=== PATIENT | male | born 1975 | race African-American/Black ===

== ENCOUNTER 2022-09-14 08:55 | Inpatient (IN) | payer OTHER ==
[2022-09-14 09:17] VITALS: BMI 20.5
[2022-09-14] MEDS ORDERED: ONDANSETRON *ODT* 4 MG TABLET SL PRN (09:45)
[2022-09-14] MEDS ORDERED: METHOCARBAMOL 500 MG TABLET PO PRN (09:45)
[2022-09-14] MEDS ORDERED: NICOTINE 14 MG/24 HOURS TOPICAL PATCH TD PRN (09:45)
[2022-09-14] MEDS ORDERED: LOPERAMIDE HCL 2 MG CAPSULE PO PRN (09:45)
[2022-09-14] MEDS ORDERED: NICOTINE 10 MG CARTRIDGE (INHALER) IH PRN (09:45)
[2022-09-14] MEDS ORDERED: hydrOXYzine PAMOATE 25 MG CAPSULE (FP) PO PRN (09:45)
[2022-09-14] MEDS ORDERED: NICOTINE POLACRILEX 2 MG GUM BUC PRN (09:45)
[2022-09-14] MEDS ORDERED: BISMUTH SUBSALICYLATE 524 MG/30 ML PO PRN (09:45)
[2022-09-14] MEDS ORDERED: guaiFENesin 600 MG TABLET.ER (FP) PO PRN (09:45)
[2022-09-14] MEDS ORDERED: POLYETHYLENE GLYCOL (HEALTHYLAX) 3350 17 GM PACKET PO PRN (09:45)
[2022-09-14] MEDS ORDERED: MAG HYDROX/AL HYDROX/SIMETH 30 ML UNIT-DOSE CUP PO PRN (09:45)
[2022-09-14] MEDS ORDERED: IBUPROFEN 600 MG TABLET (FP) PO PRN (09:45)
[2022-09-14] MEDS ORDERED: DICYCLOMINE HCL 10 MG CAPSULE PO PRN (09:45)
[2022-09-14] MEDS ORDERED: BENZOCAINE/MENTHOL (CHLORASEPTIC ) LOZENGE MM PRN (09:45)
[2022-09-14] MEDS ORDERED: ACETAMINOPHEN 325 MG TABLET (FP) PO PRN (09:45)
[2022-09-14] MEDS ORDERED: IBUPROFEN 400 MG TABLET (FP) PO PRN (09:45)
[2022-09-14] MEDS ORDERED: MAGNESIUM HYDROX 2400MG/30ML ORAL SUSPENSION 30 ML CUP PO PRN (09:45)
[2022-09-14] MEDS ORDERED: BENZONATATE 200 MG CAPSULE PO PRN (09:45)
[2022-09-14] MEDS ORDERED: PRENATAL VITAMINS W/ FOLIC ACID TABLET (FP) PO ONE (10:32)
[2022-09-14] MEDS ORDERED: HYDROCHLOROTHIAZIDE 12.5 MG CAPSULE (FP) ONE (10:32)
[2022-09-14] MEDS: PRENATAL VITAMINS W/ FOLIC ACID TABLET (FP) PO SCH (10:37)
[2022-09-14] MEDS: HYDROCHLOROTHIAZIDE 25 MG TABLET (FP) PO SCH (10:37)
[2022-09-14 13:21] LABS: HEMATOCRIT 35.8 % (35.4-49); HEMOGLOBIN 12.5 GM/dL (11.7-16.9); MCH 30.3 pg (25.7-33.7); MEAN CELL VOLUME 86.5 fl (80-96); MEAN PLT VOLUME 8.3 fl (7.5-11.1); PLATELET COUNT 275 10^3/uL (134-434); RBC 4.14 M/mm3 (4.00-5.60); RDW 12.9 % (11.9-15.9); WHITE BLOOD COUNT 6.6 K/mm3 (4.0-10.0)
[2022-09-14 14:08] LABS: BLOOD UREA NITROGEN 20.6 mg/dL (7-18); CALCIUM 9.2 mg/dL (8.5-10.1)
[2022-09-14 14:11] LABS: BILIRUBIN,TOTAL 0.4 mg/dL (0.2-1); CREATININE 1.6 mg/dL (0.55-1.3); TOT PROT 7.4 g/dl (6.4-8.2)
[2022-09-14] MEDS: MELATONIN 5 MG TABLETS PO SCH (22:35)
[2022-09-14] MEDS: THIAMINE HCL 100 MG TABLET (FP) PO SCH (22:35)
[2022-09-15] MEDS: HYDROCHLOROTHIAZIDE 25 MG TABLET (FP) PO SCH (10:24)
[2022-09-15] MEDS: PRENATAL VITAMINS W/ FOLIC ACID TABLET (FP) PO SCH (10:24)
[2022-09-15] MEDS ORDERED: POTASSIUM CHLORIDE ORAL LIQUID 20 MEQ/15 ML PO ONE (10:25)
[2022-09-15] MEDS: MELATONIN 5 MG TABLETS PO SCH (22:21)
[2022-09-15] MEDS: THIAMINE HCL 100 MG TABLET (FP) PO SCH (22:21)
[2022-09-16 06:34] VITALS: RESP 17; TEMP 97.8
[2022-09-16] MEDS: PRENATAL VITAMINS W/ FOLIC ACID TABLET (FP) PO SCH (10:41)
[2022-09-16] MEDS: HYDROCHLOROTHIAZIDE 25 MG TABLET (FP) PO SCH (10:41)
[2022-09-16 11:55] LABS: BLOOD UREA NITROGEN 18.2 mg/dL (7-18); CALCIUM 9.5 mg/dL (8.5-10.1)
[2022-09-16 11:59] LABS: CREATININE 1.2 mg/dL (0.55-1.3)
[2022-09-16 14:00] VITALS: BP 133/85; PULSE 50
== END 2022-09-16 14:17 | disposition home or self-care (01) | DRG 774 ==
LOC: YASAS 08:55 → Y3N 10:19
PROVIDERS: ADMIT Allergy & Immunology; ATTEND Surgery
PROC: HZ2ZZZZ Detoxification Services for Substance Abuse Treatment (ICD-10-PCS; principal; 2022-09-14)
DX: F10.230 Alcohol dependence with withdrawal, uncomplicated (principal); F14.20 Cocaine dependence, uncomplicated; F12.20 Cannabis dependence, uncomplicated; F17.210 Nicotine dependence, cigarettes, uncomplicated; F41.9 Anxiety disorder, unspecified; F32.A Depression, unspecified; E87.6 Hypokalemia; I10 Essential (primary) hypertension
CPT/HCPCS: 36415; 80048; 80053; 82140; 85027; 86780; 93005; 93010; C9803-CS; U0003; U0005

== ENCOUNTER 2024-03-12 09:48 | Inpatient (IN) | payer OTHER ==
[2024-03-12 10:26] VITALS: BMI 19.8
[2024-03-12] MEDS ORDERED: amLODIPine BESYLATE 5 MG TABLET (FP) ONE (10:54)
[2024-03-12] MEDS ORDERED: HYDROCHLOROTHIAZIDE 12.5 MG CAPSULE (FP) ONE (10:54)
[2024-03-12] MEDS: amLODIPine BESYLATE 5 MG TABLET (FP) PO ONE (10:56)
[2024-03-12] MEDS ORDERED: MAGNESIUM HYDROX 2400MG/30ML ORAL SUSPENSION 30 ML CUP PO PRN (10:58)
[2024-03-12] MEDS ORDERED: MAG HYDROX/AL HYDROX/SIMETH 30 ML UNIT-DOSE CUP PO PRN (10:58)
[2024-03-12] MEDS ORDERED: POLYETHYLENE GLYCOL (HEALTHYLAX) 3350 17 GM PACKET PO PRN (10:58)
[2024-03-12] MEDS ORDERED: DICYCLOMINE HCL 10 MG CAPSULE PO PRN (10:58)
[2024-03-12] MEDS ORDERED: BENZONATATE 200 MG CAPSULE PO PRN (10:58)
[2024-03-12] MEDS ORDERED: ONDANSETRON *ODT* 4 MG TABLET SL PRN (10:58)
[2024-03-12] MEDS ORDERED: BISMUTH SUBSALICYLATE 262 MG/15 ML BTL PO PRN (10:58)
[2024-03-12] MEDS ORDERED: NALOXONE (NARCAN) HCL 4 MG/0.1 ML SPRAY NS PRN (10:58)
[2024-03-12] MEDS ORDERED: guaiFENesin 600 MG TABLET.ER (FP) PO PRN (10:58)
[2024-03-12] MEDS ORDERED: LOPERAMIDE HCL 2 MG CAPSULE PO PRN (10:58)
[2024-03-12] MEDS ORDERED: BENZOCAINE/MENTHOL (CHLORASEPTIC ) LOZENGE MM PRN (10:58)
[2024-03-12] MEDS ORDERED: IBUPROFEN 400 MG TABLET (FP) PO PRN (10:58)
[2024-03-12] MEDS: hydrOXYzine PAMOATE 25 MG CAPSULE (FP) PO PRN (13:13)
[2024-03-12] MEDS: chlordiazePOXIDE HCL 25 MG CAPSULE PO PRN (13:14)
[2024-03-12] MEDS: NALTREXONE HCL 50 MG TABLET PO ONE (13:18)
[2024-03-12] MEDS: NALOXONE (NYS OPIOID OVERDOSE PROGRAM) 4 MG/0.1 ML SPRAY NS ONE (13:18)
[2024-03-12] MEDS ORDERED: NALOXONE (NYS OPIOID OVERDOSE PROGRAM) 4 MG/0.1 ML SPRAY NS PRN (14:08)
[2024-03-12] MEDS: chlordiazePOXIDE HCL 25 MG CAPSULE PO SCH (17:36)
[2024-03-12 17:44] LABS: HIV INTERPRETATION NEGATIVE (NEGATIVE)
[2024-03-12] MEDS: THIAMINE 100 MG TABLET PO SCH (22:28)
[2024-03-12] MEDS: MELATONIN 5 MG TABLETS PO SCH (22:28)
[2024-03-12] MEDS: METHOCARBAMOL 500 MG TABLET PO PRN (22:28)
[2024-03-13] MEDS: PRENATAL VITAMINS W/ FOLIC ACID TABLET (FP) PO SCH (10:26)
[2024-03-13] MEDS: NALTREXONE HCL 50 MG TABLET PO SCH (10:26)
[2024-03-13] MEDS: HYDROCHLOROTHIAZIDE 25 MG TABLET (FP) PO SCH (10:26)
[2024-03-13 14:39] LABS: POTASSIUM 4.2 mmol/L (3.5-5.1)
[2024-03-13 14:43] LABS: CALCIUM 9.2 mg/dL (8.5-10.1)
[2024-03-13 14:44] LABS: ALBUMIN 3.5 g/dl (3.4-5.0); BLOOD UREA NITROGEN 19.8 mg/dL (7-18)
[2024-03-13 14:47] LABS: CREATININE 1.4 mg/dL (0.55-1.3)
[2024-03-13 14:48] LABS: BILIRUBIN,TOTAL 0.5 mg/dL (0.2-1); TOT PROT 6.4 g/dl (6.4-8.2)
[2024-03-13 14:51] LABS: HEMATOCRIT 40.1 % (35.4-49); HEMOGLOBIN 12.9 GM/dL (11.7-16.9); MCH 28.6 pg (25.7-33.7); MCHC 32.1 g/dl (32.0-35.9); MEAN PLT VOLUME 8.5 fl (7.5-11.1); PLATELET COUNT 256 10^3/uL (134-434); RBC 4.51 M/mm3 (4.00-5.60); RDW 14.7 % (11.9-15.9); WHITE BLOOD COUNT 5.8 K/mm3 (4.0-10.0)
[2024-03-13] MEDS: ACETAMINOPHEN 325 MG TABLET (FP) PO PRN (17:36)
[2024-03-13] MEDS: IBUPROFEN 600 MG TABLET (FP) PO PRN (22:27)
[2024-03-14] MEDS: chlordiazePOXIDE HCL 25 MG CAPSULE PO SCH (06:00)
[2024-03-14] MEDS: LACTULOSE 20 GM/30 ML UDC (FOR ORAL USE ONLY) PO SCH (14:38)
[2024-03-14] MEDS: cloNIDine HCL 0.1 MG TABLET PO PRN (14:38)
[2024-03-15] MEDS ORDERED: chlordiazePOXIDE HCL 10 MG CAPSULE PO PRN
[2024-03-15] MEDS: chlordiazePOXIDE HCL 10 MG CAPSULE PO SCH (05:37)
[2024-03-15 17:55] VITALS: RESP 18
[2024-03-15] MEDS: ACETAMINOPHEN 325 MG TABLET (FP) PO PRN (18:04)
[2024-03-15] MEDS: cloNIDine HCL 0.1 MG TABLET PO ONE (19:25)
[2024-03-16] MEDS: chlordiazePOXIDE HCL 10 MG CAPSULE PO SCH (05:40)
[2024-03-16 11:46] VITALS: BP 147/81; PULSE 66; TEMP 98.6
[2024-03-17] MEDS ORDERED: chlordiazePOXIDE HCL 10 MG CAPSULE PO ONE (05:00)
== END 2024-03-16 09:31 | disposition home or self-care (01) | DRG 774 ==
LOC: YASAS 09:48 → Y3N 11:24 → Y6N 03-14 21:48
PROVIDERS: ADMIT Allergy & Immunology; ATTEND Surgery
PROC: HZ2ZZZZ Detoxification Services for Substance Abuse Treatment (ICD-10-PCS; principal; 2024-03-12)
DX: F10.230 Alcohol dependence with withdrawal, uncomplicated (principal); F14.20 Cocaine dependence, uncomplicated; F17.210 Nicotine dependence, cigarettes, uncomplicated; F32.A Depression, unspecified; E72.20 Disorder of urea cycle metabolism, unspecified; I10 Essential (primary) hypertension; R45.89 Other symptoms and signs involving emotional state; R07.9 Chest pain, unspecified; I25.2 Old myocardial infarction
CPT/HCPCS: 36415; 80053; 80305; 80307; 82140; 84484; 85027; 86780; 86803; 87389; 93005; 93010

== ENCOUNTER 2024-07-02 09:20 | Inpatient (IN) | payer OTHER ==
[2024-07-02] MEDS ORDERED: LOPERAMIDE HCL 2 MG CAPSULE PO PRN (10:46)
[2024-07-02] MEDS ORDERED: BISMUTH SUBSALICYLATE 262 MG/15 ML BTL PO PRN (10:46)
[2024-07-02] MEDS ORDERED: NALOXONE (NARCAN) HCL 4 MG/0.1 ML SPRAY NS PRN (10:46)
[2024-07-02] MEDS ORDERED: POLYETHYLENE GLYCOL (HEALTHYLAX) 3350 17 GM PACKET PO PRN (10:46)
[2024-07-02] MEDS ORDERED: guaiFENesin 600 MG TABLET.ER (FP) PO PRN (10:46)
[2024-07-02] MEDS ORDERED: ACETAMINOPHEN 325 MG TABLET (FP) PO PRN (10:46)
[2024-07-02] MEDS ORDERED: MAGNESIUM HYDROX 2400MG/30ML ORAL SUSPENSION 30 ML CUP PO PRN (10:46)
[2024-07-02] MEDS ORDERED: hydrOXYzine PAMOATE 25 MG CAPSULE (FP) PO PRN (10:46)
[2024-07-02] MEDS ORDERED: chlordiazePOXIDE HCL 25 MG CAPSULE PO PRN (10:46)
[2024-07-02] MEDS ORDERED: IBUPROFEN 400 MG TABLET (FP) PO PRN (10:46)
[2024-07-02] MEDS ORDERED: ONDANSETRON *ODT* 4 MG TABLET SL PRN (10:46)
[2024-07-02] MEDS ORDERED: IBUPROFEN 600 MG TABLET (FP) PO PRN (10:46)
[2024-07-02] MEDS ORDERED: BENZOCAINE/MENTHOL (CHLORASEPTIC ) LOZENGE MM PRN (10:46)
[2024-07-02] MEDS ORDERED: MAG HYDROX/AL HYDROX/SIMETH 30 ML UNIT-DOSE CUP PO PRN (10:46)
[2024-07-02] MEDS ORDERED: DICYCLOMINE HCL 10 MG CAPSULE PO PRN (10:46)
[2024-07-02] MEDS ORDERED: BENZONATATE 200 MG CAPSULE PO PRN (10:46)
[2024-07-02] MEDS: NALTREXONE HCL 50 MG TABLET PO ONE (11:32)
[2024-07-02] MEDS: HYDROCHLOROTHIAZIDE 25 MG TABLET (FP) PO SCH (11:33)
[2024-07-02] MEDS: chlordiazePOXIDE HCL 25 MG CAPSULE PO SCH (17:50)
[2024-07-02] MEDS: THIAMINE 100 MG TABLET PO SCH (22:19)
[2024-07-02] MEDS: MELATONIN 5 MG TABLETS PO SCH (22:19)
[2024-07-03] MEDS: PRENATAL VITAMINS W/ FOLIC ACID TABLET (FP) PO SCH (10:11)
[2024-07-03] MEDS: NALTREXONE HCL 50 MG TABLET PO SCH (10:11)
[2024-07-03] MEDS: amLODIPine BESYLATE 5 MG TABLET (FP) PO SCH (11:00)
[2024-07-03] MEDS: FLU VACCINE (FLULAVAL) PF 45 MCG/0.5 ML SYRINGE 2024-2025 IM ONE (11:29)
[2024-07-03 11:52] LABS: HEMATOCRIT 35.9 % (35.4-49); HEMOGLOBIN 11.6 GM/dL (11.7-16.9); MCHC 32.3 g/dl (32.0-35.9); MEAN CELL VOLUME 89.8 fl (80-96); MEAN PLT VOLUME 8.5 fl (7.5-11.1); PLATELET COUNT 292 10^3/uL (134-434); RBC 3.99 M/mm3 (4.00-5.60); RDW 14.9 % (11.9-15.9); WHITE BLOOD COUNT 4.2 K/mm3 (4.0-10.0)
[2024-07-03 12:04] LABS: POTASSIUM 3.9 mmol/L (3.5-5.1)
[2024-07-03 12:20] LABS: ALBUMIN 3.4 g/dl (3.4-5.0); BLOOD UREA NITROGEN 14.1 mg/dL (7-18); CALCIUM 9.2 mg/dL (8.5-10.1)
[2024-07-03 12:23] LABS: CREATININE 1.4 mg/dL (0.55-1.3)
[2024-07-03 12:24] LABS: BILIRUBIN,TOTAL 0.9 mg/dL (0.2-1); TOT PROT 6.3 g/dl (6.4-8.2)
[2024-07-03] MEDS: MIRTAZAPINE 15 MG TABLET (FP) PO SCH (22:40)
[2024-07-04] MEDS: chlordiazePOXIDE HCL 25 MG CAPSULE PO SCH (06:00)
[2024-07-05] MEDS ORDERED: chlordiazePOXIDE HCL 10 MG CAPSULE PO PRN
[2024-07-05] MEDS: chlordiazePOXIDE HCL 10 MG CAPSULE PO SCH (05:55)
[2024-07-06] MEDS: chlordiazePOXIDE HCL 10 MG CAPSULE PO SCH (05:54)
[2024-07-06] MEDS: METHOCARBAMOL 500 MG TABLET PO PRN (09:17)
[2024-07-06 21:28] VITALS: RESP 16
[2024-07-07] MEDS: chlordiazePOXIDE HCL 10 MG CAPSULE PO ONE (05:59)
[2024-07-07 09:32] VITALS: BP 147/90; PULSE 63; TEMP 97.3
== END 2024-07-07 09:34 | disposition home or self-care (01) | DRG 774 ==
LOC: YASAS 09:20 → Y6N 10:59
PROVIDERS: ADMIT Allergy & Immunology; ATTEND Allergy & Immunology
PROC: HZ2ZZZZ Detoxification Services for Substance Abuse Treatment (ICD-10-PCS; principal; 2024-07-02)
DX: F10.230 Alcohol dependence with withdrawal, uncomplicated (principal); F14.20 Cocaine dependence, uncomplicated; F17.210 Nicotine dependence, cigarettes, uncomplicated; F19.282 Other psychoactive substance dependence with psychoactive substance-induced sleep disorder; F19.280 Other psychoactive substance dependence with psychoactive substance-induced anxiety disorder; F19.24 Other psychoactive substance dependence with psychoactive substance-induced mood disorder; F32.A Depression, unspecified; I10 Essential (primary) hypertension; Z56.0 Unemployment, unspecified; Z59.01 Sheltered homelessness
CPT/HCPCS: 36415; 80053; 80305; 80307; 85027; 86780; 90656; 93005; 93010; G0008